=== PATIENT | male | born 1980 | race Caucasian/White ===

== ENCOUNTER 2020-06-20 12:45 | Emergency (ER) | payer SELFPAY ==
[~2020-06-20] VITALS: Ht 170.2 cm; Wt 81.1 kg
--- NOTE | 2020-06-20 13:50 | NUR ---
PT TO ROOM 01 FROM LOBBY
[2020-06-20] MEDS ORDERED: APIX5TAB PO (13:58)
[2020-06-20] MEDS ORDERED: OXYC5TAB98 PO (14:00)
[2020-06-20] MEDS ORDERED: OXYcodone/APAP 10/325MG TABLET ONE (14:40)
[2020-06-20] MEDS ORDERED: OXYcodone/APAP 10/325MG TABLET PO ONE (15:00)
[2020-06-20 15:31] VITALS: BP 124/77
--- NOTE | 2020-06-20 15:32 | NUR ---
TASK RN: PATIENT RESTING IN [facility] WATCHING TV, NADN, VSS, CALL LIGHT WITHIN REACH, NO FURTHER NEEDS AT THIS TIME.
[2020-06-20] MEDS ORDERED: APIXABAN 5 MG TABLET ONE (15:50)
--- NOTE | 2020-06-20 15:55 | NUR ---
TASK RN: PATIENT MEDICATED PER eMAR, PATIENT UP FOR RECHECK.
[2020-06-20] MEDS ORDERED: APIXABAN 5 MG TABLET PO ONE (16:30)
[2020-06-20] MEDS ORDERED: APIXABAN 5 MG TABLET PO SCH (21:00)
== END 2020-06-20 17:03 | disposition home or self-care (01) ==
LOC: ED 16:40
DX: I82.412 Acute embolism and thrombosis of left femoral vein (principal)
CPT/HCPCS: 99284